=== PATIENT | male | born 1955 ===

== ENCOUNTER 2022-09-04 22:04 | Inpatient (IN) | payer OTHER, MEDICARE ==
[~2022-09-04] VITALS: Ht 190.5 cm; Wt 73.5 kg
[~2022-09-04 22:04] MED LIST: ALPR1; BENZ1; VENL75; [UNRECOGNIZED DRUG - CODE]
[2022-09-04 23:26] LABS: BASOPHILS ABSOLUTE AUTO 0.01 K/mm3 (0.00-0.23); BASOPHILS PERCENT AUTO 0 % (0-2); EOSINOPHILS ABSOLUTE AUTO 0.07 K/mm3 (0.00-0.68); EOSINOPHILS PERCENT AUTO 1 % (0-6); Hematocrit 35.8 % (37.0-53.0); Hemoglobin 12.4 g/dL (13.5-17.5); IMMATURE GRAN ABSOLUTE AUTO 0.04 K/mm3 (0.00-0.10); IMMATURE GRAN PERCENT AUTO 1 % (0-1); LYMPHOCYTES PERCENT AUTO 11 % (21-46); MONOCYTES ABSOLUTE AUTO 1.84 K/mm3 (0.16-1.47); MONOCYTES PERCENT AUTO 22 % (4-13); Mean Corpuscular HGB 27.1 pg (26.0-34.0); Mean Corpuscular HGB Conc 34.6 g/dL (31.5-36.5); Mean Corpuscular Volume 78 fL (80-100); Mean Platelet Volume 8.4 fL (9.1-12.4); NEUTROPHILS ABSOLUTE AUTO 5.65 K/mm3 (1.96-9.15); NEUTROPHILS PERCENT AUTO 66 % (41-73); Platelet Count 190 K/mm3 (150-400); RDW Coefficient Variation 13.4 % (11.7-14.2); Red Blood Cell Count 4.57 M/mm3 (4.30-5.90); White Blood Cell Count 8.51 K/mm3 (4.00-11.30)
[2022-09-04 23:46] LABS: Albumin, Blood 2.8 g/dL (3.4-5.0); Albumin/Globulin Ratio 0.7 (0.8-1.8); Bilirubin, Total 0.8 mg/dL (0.1-1.0); Bun/Creatinine Ratio 16.6 (12.0-20.0); Calcium, Blood 9.2 mg/dL (8.5-10.1); Creatinine, Blood 0.78 mg/dL (0.60-1.20); Globulin, Blood 3.8 g/dL (2.2-4.0); Potassium, Blood 4.6 mmol/L (3.5-5.5); Total Protein, Blood 6.6 g/dL (6.4-8.2)
[2022-09-04 23:58] LABS: Influenza A, PCR NEGATIVE (NEGATIVE); Influenza B, PCR NEGATIVE (NEGATIVE); Resp Syncytial Virus, PCR NEGATIVE (NEGATIVE); SARS-Cov-2 (COVID-19) PCR, MMC NEGATIVE (NEGATIVE)
[2022-09-05] MEDS ORDERED: B-1100 M1 PO (00:44)
[2022-09-05] MEDS ORDERED: MELA3 PO (00:44)
[2022-09-05] MEDS ORDERED: LEVSOD100 PO (00:45)
[2022-09-05] MEDS ORDERED: TRAZ100 PO (00:46)
[2022-09-05] MEDS ORDERED: HUMIRA PEN40 MG/0.2 (00:47)
[2022-09-05] MEDS ORDERED: CARBOXYMETHYLCE15 ML BOTHEYES (00:49)
[2022-09-05] MEDS ORDERED: ANTIFUNGAL30 GM TOP (00:51)
[2022-09-05] MEDS ORDERED: CLOBETASOL EMOL15 G1 (00:53)
[2022-09-05] MEDS ORDERED: HALO.5 PO (00:57)
[2022-09-05] MEDS ORDERED: SERT100 PO (00:57)
[2022-09-05] MEDS ORDERED: HYDCOR2.5C PR (00:58)
[2022-09-05] MEDS ORDERED: LEUC5 PO (00:59)
[2022-09-05] MEDS ORDERED: DOCU100 PO (01:00)
[2022-09-05] MEDS ORDERED: FISH OIL 1,2001 EAC4 PO (01:01)
[2022-09-05] MEDS ORDERED: METO25ER (01:01)
[2022-09-05] MEDS ORDERED: DIVA500ER PO (01:02)
[2022-09-05] MEDS ORDERED: PANT40 PO (01:02)
[2022-09-05 04:23] LABS: BASOPHILS ABSOLUTE AUTO 0.02 K/mm3 (0.00-0.23); BASOPHILS PERCENT AUTO 0 % (0-2); EOSINOPHILS ABSOLUTE AUTO 0.07 K/mm3 (0.00-0.68); EOSINOPHILS PERCENT AUTO 1 % (0-6); Hematocrit 35.7 % (37.0-53.0); Hemoglobin 12.2 g/dL (13.5-17.5); IMMATURE GRAN ABSOLUTE AUTO 0.06 K/mm3 (0.00-0.10); IMMATURE GRAN PERCENT AUTO 1 % (0-1); LYMPHOCYTES ABSOLUTE AUTO 0.88 K/mm3 (0.84-5.20); LYMPHOCYTES PERCENT AUTO 12 % (21-46); MONOCYTES ABSOLUTE AUTO 1.58 K/mm3 (0.16-1.47); MONOCYTES PERCENT AUTO 22 % (4-13); Mean Corpuscular HGB 26.5 pg (26.0-34.0); Mean Corpuscular HGB Conc 34.2 g/dL (31.5-36.5); Mean Corpuscular Volume 78 fL (80-100); Mean Platelet Volume 8.7 fL (9.1-12.4); NEUTROPHILS ABSOLUTE AUTO 4.62 K/mm3 (1.96-9.15); NEUTROPHILS PERCENT AUTO 64 % (41-73); Platelet Count 202 K/mm3 (150-400); RDW Coefficient Variation 13.4 % (11.7-14.2); RDW Standard Deviation 37.8 fL (35.1-46.3); White Blood Cell Count 7.23 K/mm3 (4.00-11.30)
[2022-09-05 04:50] LABS: Albumin, Blood 2.6 g/dL (3.4-5.0); Albumin/Globulin Ratio 0.7 (0.8-1.8); Bilirubin, Total 0.8 mg/dL (0.1-1.0); Bun/Creatinine Ratio 19.2 (12.0-20.0); Calcium, Blood 9.3 mg/dL (8.5-10.1); Creatinine, Blood 0.62 mg/dL (0.60-1.20); Globulin, Blood 3.8 g/dL (2.2-4.0); Total Protein, Blood 6.4 g/dL (6.4-8.2)
--- NOTE | 2022-09-05 05:18 | NUR ---
SHIFT SUMMARY PT ARRIVED TO THE FLOOR AT APPROX 0000, SLID FROM GURNY TO BED. CAREGIVER AT BEDSIDE AT THAT TIME. PATIENT HISTORY, MEDICATIONS, AND POLST FORM RECIEVED FROM CAREGIVER. CAREGIVER STATES THAT PT HAS DEMENTIA AT BASELINE. PT IS A/O X3 AT THIS TIME, PLEASANT AND COOPERATIVE W/ CARE. R HIP FX, PT REPORTING LITTLE PAIN UNLESS LEG IS BEING MOVED. ATTENDS CHANGED PRN DUE TO PT UNABLE TO USE URINAL AND DECLINING TEAGUE PLACEMENT AT THIS TIME, CAREGIVER STATES THAT PT WILL "PULL CATHETER OUT IF IT IS PLACED." VOIDING WELL AND HAS BEEN NPO SINCE ARRIVAL TO THE FLOOR. VITAL SIGNS STABLE. WILL CONTINUE TO MONITOR AND REPORT TO ONCOMING RN.
--- NOTE | 2022-09-05 17:23 | NUR ---
SHIFT SUMMARY S/P R HIP FX, NON SURGICAL PER SURGEON DOCUMENTATION AND DISCUSSION R/T RISK OF INFECTION, ALERT BUT CONFUSED, UNABLE TO VERBALIZE WHY HE IS HERE BUT KNOWS WHO HE IS, CALLS APPROPRIATELY FOR BATHROOM ASSISTANCE, DENIES PAIN SO FAR THIS SHIFT. MINIMALLY RESPONSIVE VERBALLY BUT TRACKS WHEN SPOKEN TO, REPORTS BEING UNABLE TO HEAR. NO ACUTE EVENTS THIS SHIFT, CALL LIGHT IN REACH, WILL CTM AND REPORT TO ONCOMING NOC RN.
--- NOTE | 2022-09-06 04:00 | NUR ---
VSS. HR NOTED TO BE ELEVATED AT THE BEGINNING OF SHIFT, OBTAINED ORDER FROM HOSPITALIST FOR PM DOSE OF METOPROLOL. PT REMAINED ASYMPTOMATIC. RLE HAS SENSATION AND CIRCULATION INTACT. PT IS ABLE TO MOVE THIS LEG ON COMMAND, BUT C/O PAIN WHEN HE DOES SO. MEDICATED FOR PAIN ONCE T/O THE NIGHT. NO SHORTENING OR ROTATION OF THE RLE NOTED. TOLLERATING PO INTAKE AND VOIDING W/O DIFFICULTY. THE PT SLEPT WELL T/O THE NIGHT AND OVERALL WAS IN A PLEASENT MOOD. PLAN FOR PT TO WORK WITH PT TODAY TO ASSESS ACTIVITY TOLLERANCE AND TRANSFER STATUS. THE PATIENT IS CURRENTLY SLEEPING, CALL LIGHT IN REACH.
[2022-09-06] MEDS ORDERED: HYDR1TAB94 PO (11:22)
--- NOTE | 2022-09-06 15:18 | NUR ---
DISCHARGE SUMMARY S/P R HIP FX, ALERT/CONFUSED/COOPERATIVE, REPORTS NOT FEELING READY TO GO HOME YET BUT EDUCATED ON CURRENT MEDICAL STATUS REGARDING HIS HIP, PT ABLE TO GET UP TO EDGE OF BED WITH MINIMAL ASSISTANCE AND DID WELL WHEN TRANSFERRING TO HIS WC. DISCUSSED HOME HEALTH AND MOBILITY WITH PT BUT UNSURE HOW MUCH HE WILL RETAIN D/T HX OF DEMENTIA. IV ACCESS REMOVED AND NO IV ACCESS DEVICES IN PLACE AT TIME OF DC. PT ESCORTED OUT TO [facility] WITH DISCHARGE PACKET TO GO HOME.
== END 2022-09-06 15:25 | disposition home health service (06) | DRG 536 ==
LOC: ER 22:04 → SURS 23:52 → ER 23:52 → SURS 23:58
PROVIDERS: Emergency Medicine; ADMIT Internal Medicine
DX: S72.001A Fracture of unspecified part of neck of right femur, initial encounter for closed fracture (principal); X58.XXXA Exposure to other specified factors, initial encounter; Z66 Do not resuscitate; E03.9 Hypothyroidism, unspecified; G40.909 Epilepsy, unspecified, not intractable, without status epilepticus; F03.90 Unspecified dementia, unspecified severity, without behavioral disturbance, psychotic disturbance, mood disturbance, and anxiety; K21.9 Gastro-esophageal reflux disease without esophagitis; I10 Essential (primary) hypertension; Z79.899 Other long term (current) drug therapy; F20.9 Schizophrenia, unspecified; Z20.822 Contact with and (suspected) exposure to COVID-19
CPT/HCPCS: 0241U; 36415; 71045; 73502; 80053; 85025; 93005; 93010; 97110; 97162; 97166; 97530; 99284-25; A9270; J3010; J7030